=== PATIENT | male | born 1975 | race Caucasian/White ===

== ENCOUNTER → 2018-06-18 | Outpatient (CLI) | payer MEDICARE ==
[2018-06-18 13:31] LABS: BASOPHILS % (AUTO) 1 % (0-10); EOSINOPHILS % (AUTO) 0 % (0-10); HEMATOCRIT 39 % (40-54); HEMOGLOBIN 13.9 G/DL (13.3-17.7); LYMPHOCYTES # (AUTO) 1.9 X 10^3 (1.0-4.0); LYMPHOCYTES % (AUTO) 34 % (12-44); MEAN CORPUSCULAR HEMOGLOBIN 31 PG (25-34); MEAN CORPUSCULAR HGB CONC 36 G/DL (32-36); MEAN CORPUSCULAR VOLUME 86 FL (80-99); MEAN PLATELET VOLUME 10.2 FL (7.4-10.4); MONOCYTES # (AUTO) 0.3 X 10^3 (0.0-1.0); MONOCYTES % (AUTO) 6 % (0-12); NEUTROPHILS # (AUTO) 3.4 X 10^3 (1.8-7.8); NEUTROPHILS % (AUTO) 60 % (42-75); PLATELET COUNT 203 10^3/uL (130-400); RED CELL DISTRIBUTION WIDTH 12.9 % (10.0-14.5); WHITE BLOOD COUNT 5.7 10^3/uL (4.3-11.0)
== END ==
LOC: LAB 12:32
PROVIDERS: ATTEND Registered Nurse
DX: F20.0 Paranoid schizophrenia (principal); Z79.899 Other long term (current) drug therapy
CPT/HCPCS: 36415; 85025

== ENCOUNTER 2018-08-11 12:39 | Outpatient (RCR) | payer MEDICARE ==
[2018-08-11 13:09] LABS: BASOPHILS % (AUTO) 0 % (0-10); EOSINOPHILS % (AUTO) 0 % (0-10); HEMATOCRIT 40 % (40-54); HEMOGLOBIN 14.2 G/DL (13.3-17.7); LYMPHOCYTES # (AUTO) 1.9 X 10^3 (1.0-4.0); LYMPHOCYTES % (AUTO) 32 % (12-44); MEAN CORPUSCULAR HEMOGLOBIN 31 PG (25-34); MEAN CORPUSCULAR HGB CONC 35 G/DL (32-36); MEAN CORPUSCULAR VOLUME 87 FL (80-99); MEAN PLATELET VOLUME 10.5 FL (7.4-10.4); MONOCYTES # (AUTO) 0.3 X 10^3 (0.0-1.0); MONOCYTES % (AUTO) 6 % (0-12); NEUTROPHILS # (AUTO) 3.6 X 10^3 (1.8-7.8); NEUTROPHILS % (AUTO) 62 % (42-75); PLATELET COUNT 226 10^3/uL (130-400); RED BLOOD COUNT 4.61 10^6/uL (4.35-5.85); RED CELL DISTRIBUTION WIDTH 13.1 % (10.0-14.5); WHITE BLOOD COUNT 5.8 10^3/uL (4.3-11.0)
== END 2018-08-31 | disposition home or self-care (01) ==
LOC: LAB 12:39
PROVIDERS: ATTEND Registered Nurse
DX: G89.4 Chronic pain syndrome (principal)
CPT/HCPCS: 36415; 85025

== ENCOUNTER 2019-07-26 17:44 | Emergency (ER) | payer MEDICARE ==
[~2019-07-26] VITALS: Ht 190.5 cm; Wt 106.6 kg
--- NOTE | 2019-07-26 18:00 | NUR ---
MET WITH PT'S SISTER WHO IS IN THE WAITING ROOM WHO IS COMFORTABLE SITTING WITH HIM TILL HE IS CALLED BACK TO A ROOM.
[2019-07-26] MEDS ORDERED: LACTATED RINGERS 1,000 ML IV SCH (18:15)
--- NOTE | 2019-07-26 18:19 | ED General ---
General Chief Complaint: Psych/Social Disorder Stated Complaint: SUICIDAL IDEATIONS Nursing Triage Note: AMBULATED TO TRIAGE WITH COMPLAINTS OF SUICIDAL THOUGHTS. STATES HE HAS HAD THESE THOUGHTS FOR X4 MONTHS BUT IT HAS BEEN WORSE THIS PAST MONTH. DENIES PLANS OR WANTING TO KILL HIMSLEF BUT CANT STOP THE THOUGHTS. HX OF BEING ADMITTED TO [facility] AND WANTS READMITTED THERE. Nursing Sepsis Screen: No Definite Risk Source of Information: Patient Exam Limitations: No Limitations History of Present Illness Date Seen by Provider: Jul 26, 2019 Time Seen by Provider: 18:16 Initial Comments To ER with c/o suicidal x3 weeks, increased depression x a few months. No sp ecific plan. Arrives with sister and friend and is comfortable calling or contacting her prior to attempting to harm himself. Has no plans of harming himself. Would like readmitted to [facility]. Uses vistaril which he doesnt feel is helpful, and also uses clozaril. Timing/Duration: 1-2 Days Severity: Moderate Allergies and Home Medications Allergies Coded Allergies: No Known Drug Allergies (Unverified , 07/26/19) Patient Home Medication List Home Medication List Reviewed: Yes Review of Systems Review of Systems Constitutional: see HPI EENTM: see HPI Respiratory: no symptoms reported Cardiovascular: no symptoms reported Genitourinary: no symptoms reported Musculoskeletal: no symptoms reported Skin: no symptoms reported Psychiatric/Neurological: See HPI Hematologic/Lymphatic: No Symptoms Reported Past Ereczaf-Ordhup-Bexjwv Hx Patient Social History Recent Foreign Travel: No Contact w/Someone Who Travel: No Recent Infectious Disease Expo: No Physical Exam Vital Signs Vital Signs - First Documented 07/26/19 17:50 Temp 98.1 Pulse 122 Resp 16 B/P (MAP) 103/76 (85) Pulse Ox 99 O2 Delivery Room Air Capillary Refill : Less Than 3 Seconds Height, Weight, BMI Height: 6'3.00" Weight: 235lbs. oz. 106.745721me; BMI Method:Stated General Appearance: No Apparent Distress, WD/WN, Other (good eye contact, alert and oriented, pleasant cooperative. ) Eyes: Bilateral Eye Normal Inspection, Bilateral Eye PERRL, Bilateral Eye EOMI HEENT: PERRL/EOMI, TMs Normal Respiratory: No Accessory Muscle Use, No Respiratory Distress Cardiovascular: Regular Rate, Rhythm, Normal Peripheral Pulses Gastrointestinal: Non Tender, Soft Extremity: Normal Capillary Refill, Normal Inspection Neurologic/Psychiatric: Alert, Oriented x3 Skin: Normal Color, Warm/Dry, Other (tinea versicolor-states this rash goes away when he uses selsun blue. ) Progress/Results/Core Measures Suspected Sepsis Recent Fever Within 48 Hours: No Infection Criteria Present: None New/Unexplained Altered Menta: No Sepsis Screen: No Definite Risk SIRS Temperature:98.1 Pulse: 122 Respiratory Rate: 16 Laboratory Tests 07/26/19 18:22: White Blood Count 6.8 Blood Pressure 103 /76 Mean: 85 Laboratory Tests 07/26/19 18:22: Creatinine 0.99, Platelet Count 196, Total Bilirubin 0.4 Results/Orders Lab Results Laboratory Tests Test 07/26/19 18:22 07/26/19 19:12 Range/Units White Blood Count 6.8 4.3-11.0 10^3/uL Red Blood Count 4.55 4.35-5.85 10^6/uL Hemoglobin 14.0 13.3-17.7 G/DL Hematocrit 40 40-54 % Mean Corpuscular Volume 88 80-99 FL Mean Corpuscular Hemoglobin 31 25-34 PG Mean Corpuscular Hemoglobin Concent 35 32-36 G/DL Red Cell Distribution Width 13.0 10.0-14.5 % Platelet Count 196 130-400 10^3/uL Mean Platelet Volume 10.6 H 7.4-10.4 FL Neutrophils (%) (Auto) 65 42-75 % Lymphocytes (%) (Auto) 29 12-44 % Monocytes (%) (Auto) 7 0-12 % Eosinophils (%) (Auto) 0 0-10 % Basophils (%) (Auto) 0 0-10 % Neutrophils # (Auto) 4.4 1.8-7.8 X 10^3 Lymphocytes # (Auto) 1.9 1.0-4.0 X 10^3 Monocytes # (Auto) 0.4 0.0-1.0 X 10^3 Eosinophils # (Auto) 0.0 0.0-0.3 10^3/uL Basophils # (Auto) 0.0 0.0-0.1 10^3/uL Sodium Level 142 135-145 MMOL/L Potassium Level 3.5 L 3.6-5.0 MMOL/L Chloride Level 108 H 98-107 MMOL/L Carbon Dioxide Level 20 L 21-32 MMOL/L Anion Gap 14 5-14 MMOL/L Blood Urea Nitrogen 12 7-18 MG/DL Creatinine 0.99 0.60-1.30 MG/DL Estimat Glomerular Filtration Rate > 60 BUN/Creatinine Ratio 12 Glucose Level 110 H 70-105 MG/DL Calcium Level 9.2 8.5-10.1 MG/DL Corrected Calcium 8.9 8.5-10.1 MG/DL Total Bilirubin 0.4 0.1-1.0 MG/DL Aspartate Amino Transf (AST/SGOT) 18 5-34 U/L Alanine Aminotransferase (ALT/SGPT) 21 0-55 U/L Alkaline Phosphatase 111 40-136 U/L Total Protein 7.3 6.4-8.2 GM/DL Albumin 4.4 3.2-4.5 GM/DL My Orders Orders - TUSHAR HORN APRN Cbc With Automated Diff (07/26/19 18:15) Comprehensive Metabolic Panel (07/26/19 18:15) Ua Culture If Indicated (07/26/19 18:15) Ed Iv/Invasive Line Start (07/26/19 18:15) Drug Screen Stat (Urine) (07/26/19 18:15) Lactated Ringers (Lr 1000 Ml Iv Solution (07/26/19 18:15) Alprazolam Tablet (Xanax Tablet) (07/26/19 18:30) Vital Signs/I&O 07/26/19 07/26/19 17:50 18:26 Temp 98.1 Pulse 122 92 Resp 16 18 B/P (MAP) 103/76 (85) 112/81 (91) Pulse Ox 99 98 O2 Delivery Room Air Room Air Capillary Refill : Less Than 3 Seconds Blood Pressure Mean: 85 Departure Communication (Admissions) [place] just spoken with [facility] and all other local inpatient facilities about another pt. All of whom informed me theyre at capacity today. Pt is agreeable to starting prozac and klonopin outpatient and following up with mental health this week, sister agrees with this plan. Impression Primary Impression: Depression Additional Impression: Anxiety Disposition: 01 HOME, SELF-CARE Condition: Stable Departure-Patient Inst. Decision time for Depature: 19:19 Referrals: NO,LOCAL PHYSICIAN (PCP/Family) Primary Care Physician Patient Instructions: Anxiety, Adult (DC), Depression, Adult (DC) Add. Discharge Instructions: 1. Call your mental health provider tomorrow for an appointment for follow up 2. Medication as directed 3. Call [facility] live at [phone] for any concerns All discharge instructions reviewed with patient and/or family. Voiced understanding. Scripts Fluoxetine HCl (Prozac) 20 Mg Capsule 20 MG PO DAILY, #20 CAP Prov: TUSHAR HORN APRN 07/26/19 Clonazepam (Klonopin) 0.5 Mg Tablet 0.5 MG PO HS, #10 TAB Prov: TUSHAR HORN APRN 07/26/19 TUSHAR HORN APRN Jul 26, 2019 18:19
[2019-07-26 18:26] VITALS: BP 112/81
[2019-07-26 18:28] LABS: BASOPHILS % (AUTO) 0 % (0-10); EOSINOPHILS % (AUTO) 0 % (0-10); HEMATOCRIT 40 % (40-54); LYMPHOCYTES # (AUTO) 1.9 X 10^3 (1.0-4.0); LYMPHOCYTES % (AUTO) 29 % (12-44); MEAN CORPUSCULAR HEMOGLOBIN 31 PG (25-34); MEAN CORPUSCULAR HGB CONC 35 G/DL (32-36); MEAN CORPUSCULAR VOLUME 88 FL (80-99); MEAN PLATELET VOLUME 10.6 FL (7.4-10.4); MONOCYTES # (AUTO) 0.4 X 10^3 (0.0-1.0); MONOCYTES % (AUTO) 7 % (0-12); NEUTROPHILS # (AUTO) 4.4 X 10^3 (1.8-7.8); NEUTROPHILS % (AUTO) 65 % (42-75); PLATELET COUNT 196 10^3/uL (130-400); WHITE BLOOD COUNT 6.8 10^3/uL (4.3-11.0)
[2019-07-26] MEDS ORDERED: ALPRAZolam 0.5 MG (XANAX) TAB PO SCH (18:30)
[2019-07-26] MEDS ORDERED: CLOZ100T7 (18:40)
--- NOTE | 2019-07-26 18:44 | NUR ---
PATIENT SISTER AND MALE IN ROOM MEDS TAKEN FROM PATIENT AND GIVEN TO SISTER. PATIENT VOICES WILL NOT HARM SELF FAMILY AT BED SIDE WILL.
[2019-07-26 18:45] LABS: ALANINE AMINOTRANSFERASE 21 U/L (0-55); ALBUMIN 4.4 GM/DL (3.2-4.5); ALKALINE PHOSPHATASE 111 U/L (40-136); BILIRUBIN,TOTAL 0.4 MG/DL (0.1-1.0); BUN/CREATININE RATIO 12; CALCIUM 9.2 MG/DL (8.5-10.1); CARBON DIOXIDE 20 MMOL/L (21-32); CHLORIDE 108 MMOL/L (98-107); CREATININE SERUM 0.99 MG/DL (0.60-1.30); GFR ESTIMATED > 60; GLUCOSE 110 MG/DL (70-105); POTASSIUM 3.5 MMOL/L (3.6-5.0); SODIUM 142 MMOL/L (135-145); TOTAL PROTEIN 7.3 GM/DL (6.4-8.2)
--- NOTE | 2019-07-26 19:00 | NUR ---
ASSUMED PRIMARY NURSE ROLE
[2019-07-26 19:18] LABS: BILIRUBIN,URINE NEGATIVE (NEGATIVE); CLARITY,URINE CLEAR; COLOR,URINE YELLOW; GLUCOSE, URINE (UA) NEGATIVE (NEGATIVE); KETONES,URINE NEGATIVE (NEGATIVE); LEUKOCYTE ESTERASE ,URINE 1+ (NEGATIVE); NITRITE,URINE NEGATIVE (NEGATIVE); PH,URINE 8 (5-9); PROTEIN,URINE NEGATIVE (NEGATIVE); UROBILINOGEN,URINE 1 MG/DL (NORMAL)
[2019-07-26] MEDS ORDERED: CLON0.5T PO (19:21)
[2019-07-26] MEDS ORDERED: FLUO20CA42 PO (19:21)
[2019-07-26 19:28] LABS: SQUAMOUS EPITHELIAL CELL,UR 0-2 /HPF
[2019-07-26 19:29] LABS: AMPHETAMINE SCREEN, URINE NEGATIVE (NEGATIVE); BARBITURATE SCREEN URINE NEGATIVE (NEGATIVE); BENZODIAZEPINES SCREEN URINE NEGATIVE (NEGATIVE); CANNABINOID SCREEN, URINE NEGATIVE (NEGATIVE); COCAINE SCREEN URINE NEGATIVE (NEGATIVE); METHADONE STAT NEGATIVE (NEGATIVE); METHAMPHETAMINE SCREEN URINE S NEGATIVE (NEGATIVE); OPIATE SCREEN URINE NEGATIVE (NEGATIVE); OXYCODONE STAT NEGATIVE (NEGATIVE); PROPOXYPHENE STAT NEGATIVE (NEGATIVE); TRICYCLIC ANTIDEPRESSANTS SCRE POSITIVE (NEGATIVE)
[2019-07-26 19:43] VITALS: BP 112/81
== END 2019-07-26 19:43 | disposition home or self-care (01) ==
LOC: EDUNIT# 17:44 → ER 17:45
DX: F32.9 Major depressive disorder, single episode, unspecified (principal); F41.9 Anxiety disorder, unspecified
CPT/HCPCS: 36415; 80053; 80306; 81000; 85025

== ENCOUNTER 2020-02-17 18:58 | Emergency (ER) | payer MEDICARE ==
[~2020-02-17] VITALS: Ht 182.9 cm; Wt 117.9 kg
[~2020-02-17 18:58] MED LIST: CLON0.5T PO; CLOZ100T7; FLUO20CA42 PO
[2020-02-17] MEDS ORDERED: NS IV 1000 ML 1,000 ML IV SCH (19:45)
[2020-02-17] MEDS ORDERED: ONDANSETRON 4 MG/2 ML (SDV) Z0FRAN IVP ONE (20:00)
--- NOTE | 2020-02-17 20:02 | ED General ---
General Chief Complaint: Cough/Cold/Flu Symptoms Stated Complaint: FEVER / BODYACHES Nursing Triage Note: Pt amb to triage with c/o cough, congestion, subjective fever, chills, body aches, et lethragy. Pt reports onset of symptoms to be 02/03/20. Pt states, "I get real lethargic and feel like I am going to pass out." Pt reports to have adm OTC dayquil on this day with little relief in symptoms. A&OX4. Nursing Sepsis Screen: Possible Severe Sepsis Risk Source of Information: Patient Exam Limitations: No Limitations History of Present Illness Date Seen by Provider: Feb 17, 2020 Time Seen by Provider: 19:12 Initial Comments This 44-year-old man presents to the emergency room with flulike symptoms intermittently since January 31. He complains of nausea, diarrhea, cough, shortness of breath, and fever. He reports a temperature at home of 101. He is afebrile at present but tachycardic with a heart rate in the 120s. He denies any known exposure to individuals with coronavirus or persons under investigation. He denies any travel to high risk regions. However, he did take his roommate to the [place] [facility] on February 01 and did enter the airport. Allergies and Home Medications Allergies Coded Allergies: No Known Drug Allergies (Unverified , 07/26/19) Home Medications Clonazepam 0.5 Mg Tablet, 0.5 MG PO HS Prescribed by: TUSHAR HORN on 07/26/191920 Doxycycline Hyclate 100 Mg Tablet, 100 MG PO BID Prescribed by: MANUEL MARTINEZ on 02/17/202236 Fluoxetine HCl 20 Mg Capsule, 20 MG PO DAILY Prescribed by: TUSHAR HORN on 07/26/191920 Ondansetron 4 Mg Tab.rapdis, 4 MG SL Q4H PRN for NAUSEA/VOMITING Prescribed by: MANUEL MARTINEZ on 02/17/202226 Patient Home Medication List Home Medication List Reviewed: Yes Review of Systems Review of Systems Constitutional: see HPI EENTM: no symptoms reported Respiratory: see HPI Cardiovascular: no symptoms reported Gastrointestinal: see HPI Genitourinary: no symptoms reported Musculoskeletal: no symptoms reported Skin: no symptoms reported Psychiatric/Neurological: No Symptoms Reported Hematologic/Lymphatic: No Symptoms Reported Immunological/Allergic: no symptoms reported Past Gzucxtj-Rajast-Vlrhuj Hx Past Med/Social Hx: Reviewed Nursing Past Med/Soc Hx Patient Social History Alcohol Use: Rarely Uses Number of Drinks Today: 0 Alcohol Beverage of Choice: Beer Recreational Drug Use: No Smoking Status: Current Everyday Smoker Type Used: Cigarettes 2nd Hand Smoke Exposure: Yes Recent Foreign Travel: No Contact w/Someone Who Travel: No Recent Infectious Disease Expo: No Past Medical History Surgeries: No Respiratory: No Cardiac: No Neurological: No Genitourinary: No Musculoskeletal: No Endocrine: No HEENT: No Cancer: No Psychosocial: Yes Anxiety, Schizophrenia, Depression Integumentary: No Physical Exam-Suspected Sepsis Physical Exam Vital Signs Vital Signs - First Documented 02/17/20 19:10 Temp 36.8 Pulse 124 Resp 18 B/P (MAP) 94/65 (75) Pulse Ox 98 O2 Delivery Room Air Capillary Refill : Less Than 3 Seconds Blood Pressure Mean: 75 Height, Weight, BMI Height: 6'3.00" Weight: 235lbs. oz. 106.173581od; 35.00 BMI Method:Stated General Appearance: No Apparent Distress, WD/WN HEENT: PERRL/EOMI, TMs Normal, Normal ENT Inspection, Pharynx Normal Neck: Normal Inspection Respiratory: Lungs Clear, Normal Breath Sounds, No Accessory Muscle Use, No Respiratory Distress Cardiovascular: No Edema, No Murmur, Normal Peripheral Pulses, Tachycardia Gastrointestinal: Normal Bowel Sounds, Non Tender, Soft Extremity: Normal Capillary Refill, Normal Inspection, No Pedal Edema Neurologic/Psychiatric: Alert, Oriented x3, No Motor/Sensory Deficits, Normal Mood/Affect, manager cancer II-XII Norm as Tested Skin: normal color, warm/dry; No rash Focused Exam Lactate Level 02/17/20 19:46: Lactic Acid Level 1.47 Lactic Acid Level Laboratory Tests Test 02/17/20 19:46 Lactic Acid Level 1.47 MMOL/L (0.50-2.00) Progress/Results/Core Measures Suspected Sepsis Recent Fever Within 48 Hours: Yes Infection Criteria Present: Suspected New Infection New/Unexplained Altered Menta: No Sepsis Screen: Possible Severe Sepsis Risk SIRS Temperature: Pulse: 124 Respiratory Rate: 18 Laboratory Tests 02/17/20 19:46: White Blood Count 8.1 Blood Pressure 94 /65 Mean: 75 02/17/20 19:46: Lactic Acid Level 1.47 Laboratory Tests 02/17/20 19:46: Creatinine 1.22, INR Comment 1.1, Platelet Count 216, Total Bilirubin 0.9 Results/Orders Lab Results Laboratory Tests Test 02/17/20 19:46 02/17/20 19:51 02/17/20 21:05 Range/Units White Blood Count 8.1 4.3-11.0 10^3/uL Red Blood Count 5.04 4.35-5.85 10^6/uL Hemoglobin 14.9 13.3-17.7 G/DL Hematocrit 44 40-54 % Mean Corpuscular Volume 88 80-99 FL Mean Corpuscular Hemoglobin 30 25-34 PG Mean Corpuscular Hemoglobin Concent 34 32-36 G/DL Red Cell Distribution Width 13.2 10.0-14.5 % Platelet Count 216 130-400 10^3/uL Mean Platelet Volume 10.7 H 7.4-10.4 FL Neutrophils (%) (Auto) 83 H 42-75 % Lymphocytes (%) (Auto) 12 12-44 % Monocytes (%) (Auto) 6 0-12 % Eosinophils (%) (Auto) 0 0-10 % Basophils (%) (Auto) 0 0-10 % Neutrophils # (Auto) 6.7 1.8-7.8 X 10^3 Lymphocytes # (Auto) 0.9 L 1.0-4.0 X 10^3 Monocytes # (Auto) 0.5 0.0-1.0 X 10^3 Eosinophils # (Auto) 0.0 0.0-0.3 10^3/uL Basophils # (Auto) 0.0 0.0-0.1 10^3/uL Prothrombin Time 14.5 12.2-14.7 SEC INR Comment 1.1 0.8-1.4 Activated Partial Thromboplast Time 31 24-35 SEC Sodium Level 137 135-145 MMOL/L Potassium Level 4.1 3.6-5.0 MMOL/L Chloride Level 104 98-107 MMOL/L Carbon Dioxide Level 20 L 21-32 MMOL/L Anion Gap 13 5-14 MMOL/L Blood Urea Nitrogen 17 7-18 MG/DL Creatinine 1.22 0.60-1.30 MG/DL Estimat Glomerular Filtration Rate > 60 BUN/Creatinine Ratio 14 Glucose Level 133 H 70-105 MG/DL Lactic Acid Level 1.47 0.50-2.00 MMOL/L Calcium Level 8.8 8.5-10.1 MG/DL Corrected Calcium 8.6 8.5-10.1 MG/DL Total Bilirubin 0.9 0.1-1.0 MG/DL Aspartate Amino Transf (AST/SGOT) 17 5-34 U/L Alanine Aminotransferase (ALT/SGPT) 25 0-55 U/L Alkaline Phosphatase 99 40-136 U/L C-Reactive Protein High Sensitivity 4.31 H 0.00-0.50 MG/DL Total Protein 7.6 6.4-8.2 GM/DL Albumin 4.3 3.2-4.5 GM/DL Procalcitonin 0.34 H <0.10 NG/ML Group A Streptococcus Screen NEGATIVE NEGATIVE Urine Color YELLOW Urine Clarity CLEAR Urine pH 6.5 5-9 Urine Specific [place] 1.025 H 1.016-1.022 Urine Protein TRACE H NEGATIVE Urine Glucose (UA) NEGATIVE NEGATIVE Urine Ketones NEGATIVE NEGATIVE Urine Nitrite NEGATIVE NEGATIVE Urine Bilirubin NEGATIVE NEGATIVE Urine Urobilinogen 1.0 < = 1.0 MG/DL Urine Leukocyte Esterase NEGATIVE NEGATIVE Urine RBC (Auto) NEGATIVE NEGATIVE Urine RBC NONE /HPF Urine WBC NONE /HPF Urine Squamous Epithelial Cells NONE /HPF Urine Crystals NONE /LPF Urine Bacteria NEGATIVE /HPF Urine Casts NONE /LPF Urine Mucus MODERATE H /LPF Urine Culture Indicated NO Micro Results Microbiology 02/17/20 Influenza Types A,B Antigen ([facility]) - Final, Complete My Orders Orders - MANUEL DANIELS MD Influenza A And B Antigens (02/17/20 19:12) Cbc With Automated Diff (02/17/20 19:45) Comprehensive Metabolic Panel (02/17/20 19:45) Blood Culture (02/17/20 19:45) Sputum Culture (02/17/20 19:45) Urinalysis (02/17/20 19:45) Urine Culture (02/17/20 19:45) Protime With Inr (02/17/20 19:45) Partial Thromboplastin Time (02/17/20 19:45) Chest 1 View, Ap/Pa Only (02/17/20 19:45) Ed Iv/Invasive Line Start (02/17/20 19:45) Ed Iv/Invasive Line Start (02/17/20 19:45) Vital Signs Adult Sepsis Patie Q15M (02/17/20 19:45) O2 (02/17/20 19:45) Remove Rings In Anticipation O (02/17/20 19:45) Lactic Acid Analyzer (02/17/20 19:45) Ns Iv 1000 Ml (Sodium Chloride 0.9%) (02/17/20 19:45) Ondansetron Injection (Zofran Injectio (02/17/20 20:00) Hs C Reactive Protein (02/17/20 20:02) Procalcitonin (Pct) (02/17/20 20:02) Rapid Strep A Screen (02/17/20 20:08) Azithromycin Tablet (Zithromax Tablet) (02/17/20 22:30) Medications Given in ED Current Medications Medications Dose Ordered Sig/More Route Start Time Stop Time Status Last Admin Dose Admin Azithromycin 500 mg ONCE ONCE PO 02/17/20 22:30 02/17/20 22:31 DC 02/17/20 22:30 500 MG Ondansetron HCl 8 mg ONCE ONCE IVP 02/17/20 20:00 02/17/20 20:01 DC 02/17/20 19:59 8 MG Vital Signs/I&O 02/17/20 02/17/20 19:10 19:30 Temp 36.8 Pulse 124 Resp 18 B/P (MAP) 94/65 (75) Pulse Ox 98 O2 Delivery Room Air Room Air Capillary Refill : Less Than 3 Seconds Blood Pressure Mean: 75 Progress Note : Time: 22:45 Progress Note Septic workup was pursued. No source of infection was identified. He was given a liter of IV fluids which resulted in a 20 bpm drop in heart rate. He also received Zofran which resolved his nausea. He was feeling improved after these therapies. He had no vomiting or diarrhea in the emergency room. Because of the duration of his respiratory symptoms and questionable haziness in the lung bases on x-ray, he was treated with azithromycin. This was changed to doxycycline on his outpatient prescription due to the fact that he take psychotropic medications. I did contact the [facility] regarding coronavirus screening. He does not strictly meet the criteria for their recommendations. They are not aware of any cases coming out of the [facility] that would trigger a higher suspicion. Testing was not performed for coronavirus. Patient was discharged in improved condition. See discharge instructions. Diagnostic Imaging Diagonstic Imaging: Xray Plain Films/CT/US/NM/MRI: chest Comments Chest x-ray viewed by me and report reviewed. See report below: NAME: ARTEMIO DIAZ [facility] REC#: [id number] PT STATUS: REG ER : 1975 PHYSICIAN: MANUEL DANIELS MD ADMIT DATE: 02/17/20/ER Draft Date of Exam:02/17/20 CHEST 1 VIEW, AP/PA ONLY INDICATION: Cough, congestion, fever and chills A single view of the chest shows normal heart size and vascularity. The lungs are clear. There is no effusion or pneumothorax. IMPRESSION: No acute abnormality is seen. Dictated on workstation # [id number] Dict: 02/17/202108 Trans: 02/17/202111 [facility] [id number] Interpreted by: ANCA MUNOZ MD Departure Impression Primary Impression: Flu-like symptoms Additional Impressions: Diarrhea Qualified Codes: R19.7 - Diarrhea, unspecified Nausea Disposition: HOME, SELF-CARE Condition: Improved Departure-Patient Inst. Decision time for Depature: 22:23 Referrals: NO,LOCAL PHYSICIAN (PCP/Family) Primary Care Physician Patient Instructions: Diarrhea in Adolescents and Adults, Viral Upper Respiratory Infection, Adult (DC) Add. Discharge Instructions: Start with a clear liquid diet and drink plenty of clear liquids to stay well- hydrated. Gradually advance your diet with small quantities of bland food as tolerated. You may use Zofran (ondansetron) as prescribed for nausea and vomiting. For headache, body aches, and fever use Tylenol (acetaminophen) up to 1000 mg every 6 hours as needed. You may sparingly add ibuprofen up to 600 mg 2 or 3 times a day for symptoms not controlled by Tylenol. Isolated yourself at home and avoid contact with other people until your symptoms resolve and until you're free of fevers without fever reducing medication for at least 24 hours. Start your antibiotic tomorrow and complete the 10 day course. Return to emergency room if you have worsening symptoms or your symptoms are not improving as expected over the course of the next few days. All discharge instructions reviewed with patient and/or family. Voiced understanding. Scripts Doxycycline Hyclate (Doxycycline Hyclate) 100 Mg Tablet 100 MG PO BID, #20 TAB 0 Refills Prov: MANUEL DANIELS MD 02/17/20 Ondansetron (Ondansetron Odt) 4 Mg Tab.rapdis 4 MG SL Q4H PRN for NAUSEA/VOMITING, #10 TAB Prov: MANUEL DANIELS MD 02/17/20 MANUEL DANIELS MD Feb 17, 2020 20:02
[2020-02-17 20:05] LABS: BASOPHILS % (AUTO) 0 % (0-10); EOSINOPHILS % (AUTO) 0 % (0-10); HEMATOCRIT 44 % (40-54); HEMOGLOBIN 14.9 G/DL (13.3-17.7); LYMPHOCYTES # (AUTO) 0.9 X 10^3 (1.0-4.0); LYMPHOCYTES % (AUTO) 12 % (12-44); MEAN CORPUSCULAR HEMOGLOBIN 30 PG (25-34); MEAN CORPUSCULAR HGB CONC 34 G/DL (32-36); MEAN CORPUSCULAR VOLUME 88 FL (80-99); MEAN PLATELET VOLUME 10.7 FL (7.4-10.4); MONOCYTES # (AUTO) 0.5 X 10^3 (0.0-1.0); MONOCYTES % (AUTO) 6 % (0-12); NEUTROPHILS # (AUTO) 6.7 X 10^3 (1.8-7.8); NEUTROPHILS % (AUTO) 83 % (42-75); PLATELET COUNT 216 10^3/uL (130-400); RED CELL DISTRIBUTION WIDTH 13.2 % (10.0-14.5); WHITE BLOOD COUNT 8.1 10^3/uL (4.3-11.0)
[2020-02-17 20:20] LABS: INR 1.1 (0.8-1.4); PROTHROMBIN TIME PATIENT 14.5 SEC (12.2-14.7)
[2020-02-17 20:26] LABS: ALANINE AMINOTRANSFERASE 25 U/L (0-55); ALBUMIN 4.3 GM/DL (3.2-4.5); ALKALINE PHOSPHATASE 99 U/L (40-136); BILIRUBIN,TOTAL 0.9 MG/DL (0.1-1.0); BUN/CREATININE RATIO 14; CALCIUM 8.8 MG/DL (8.5-10.1); CARBON DIOXIDE 20 MMOL/L (21-32); CREATININE SERUM 1.22 MG/DL (0.60-1.30); GFR ESTIMATED > 60; GLUCOSE 133 MG/DL (70-105); TOTAL PROTEIN 7.6 GM/DL (6.4-8.2)
--- NOTE | 2020-02-17 21:13 | Diagnostic Imaging Report ---
INDICATION: Cough, congestion, fever and chills A single view of the chest shows normal heart size and vascularity. The lungs are clear. There is no effusion or pneumothorax. IMPRESSION: No acute abnormality is seen. Dictated by: Dictated on workstation # [id number]
[2020-02-17 21:14] LABS: BILIRUBIN,URINE NEGATIVE (NEGATIVE); CLARITY,URINE CLEAR; COLOR,URINE YELLOW; GLUCOSE, URINE (UA) NEGATIVE (NEGATIVE); KETONES,URINE NEGATIVE (NEGATIVE); LEUKOCYTE ESTERASE ,URINE NEGATIVE (NEGATIVE); NITRITE,URINE NEGATIVE (NEGATIVE); PH,URINE 6.5 (5-9); PROTEIN,URINE TRACE (NEGATIVE)
[2020-02-17 21:20] LABS: BACTERIA,URINE NEGATIVE /HPF
[2020-02-17 22:14] LABS: CHLORIDE 104 MMOL/L (98-107); POTASSIUM 4.1 MMOL/L (3.6-5.0); SODIUM 137 MMOL/L (135-145)
[2020-02-17] MEDS ORDERED: AZIT250T12 PO (22:27)
[2020-02-17] MEDS ORDERED: ONDA4TAB11 SL (22:27)
[2020-02-17] MEDS ORDERED: AZITHROMYCIN 250 MG TAB (ZITHROMAX) PO ONE (22:30)
[2020-02-17] MEDS ORDERED: DOXY100T2 PO (22:37)
[2020-02-17 22:41] VITALS: BP 116/74
== END 2020-02-17 22:41 | disposition home or self-care (01) ==
LOC: EDUNIT# 18:58 → ER 18:59
DX: R09.89 Other specified symptoms and signs involving the circulatory and respiratory systems (principal); R19.7 Diarrhea, unspecified; R11.0 Nausea; F41.9 Anxiety disorder, unspecified; F32.9 Major depressive disorder, single episode, unspecified; F17.210 Nicotine dependence, cigarettes, uncomplicated
CPT/HCPCS: 36415; 71045; 80053; 81000; 83605; 84145; 85025; 85610; 85730; 86141; 87040; 87088; 87430; 87804